=== PATIENT | male | born 1950 | race Two or more races ===

== ENCOUNTER 2018-08-12 11:08 | Emergency (ER) | payer OTHER ==
[~2018-08-12] VITALS: Ht 165.1 cm; Wt 72.6 kg
[2018-08-12 12:01] VITALS: BP 127/78
[2018-08-12] MEDS ORDERED: LIDOCAINE 1% HCL (LOCAL ANESTH.) INJ 20ML MDV IJ ONE (12:15)
== END 2018-08-12 13:05 | disposition home or self-care (01) ==
LOC: ER 11:15
DX: S81.811A Laceration without foreign body, right lower leg, initial encounter (principal); I10 Essential (primary) hypertension; W11.XXXA Fall on and from ladder, initial encounter; Y93.89 Activity, other specified; Y99.8 Other external cause status; Y92.89 Other specified places as the place of occurrence of the external cause
CPT/HCPCS: 12005; 73562; 99284; J2001

== ENCOUNTER 2018-08-24 17:45 | Emergency (ER) | payer OTHER ==
[~2018-08-24] VITALS: Ht 165.1 cm; Wt 72.6 kg
[2018-08-24 18:29] VITALS: BP 124/70
== END 2018-08-24 19:42 | disposition home or self-care (01) ==
LOC: ER 17:49
DX: S81.811D Laceration without foreign body, right lower leg, subsequent encounter (principal); I10 Essential (primary) hypertension; W11.XXXD Fall on and from ladder, subsequent encounter